=== PATIENT | male | born 1975 | race Caucasian/White ===

== ENCOUNTER 2020-02-21 07:26 | Emergency (ER) | payer SELFPAY ==
[~2020-02-21] VITALS: Ht 172.7 cm; Wt 86.8 kg
[2020-02-21] MEDS ORDERED: SODIUM CHLORIDE FLUSH 10ML SYR IVF ONE (08:00)
[2020-02-21] MEDS ORDERED: MECLIZINE CHEWABLE 25 MG TAB PO ONE (08:00)
[2020-02-21] MEDS ORDERED: SODIUM CHLORIDE 0.9% 1,000ML IVBOLUS ONE (08:00)
[2020-02-21] MEDS ORDERED: MECLIZINE CHEWABLE 25 MG TAB ONE (08:03)
--- NOTE | 2020-02-21 08:16 | NUR ---
PT AMBULATORY TO ROOM 2 W/ C/O DIZZINESS STARTED 3 DAYS AGO AFTER PT HAD METH USE W/ SNORTING. PT RESTING ON RJOHNNY. NADN. MONITORS APPLIED. PIV INITIATED.
[2020-02-21 08:28] LABS: BASOPHILS % (AUTO) 1 % (0-1); EOSINOPHILS % (AUTO) 1 % (1-7); LYMPHOCYTES % (AUTO) 32 % (22-44); MEAN CORPUSCULAR HEMOGLOBIN 31.4 pg (27.5-34.5); MEAN CORPUSCULAR HGB CONC 33.8 g/dL (33.2-36.2); MEAN PLATELET VOLUME 8.5 fL (7.4-10.4); MONOCYTES % (AUTO) 12 % (2-9); NEUTROPHILS % (AUTO) 55 % (42-75); PLATELET COUNT 201 x10^3/uL (130-400); RED BLOOD COUNT 4.72 x10^6/uL (4.38-5.82); RED CELL DISTRIBUTION WIDTH 14.8 % (9.4-14.8)
[2020-02-21 08:31] LABS: MD NO
[2020-02-21 08:39] LABS: ALANINE AMINOTRANSFERASE 52 U/L (12-78); ALBUMIN 3.7 g/dL (3.4-5.0); ANION GAP 11 mmol/L (5-15); CALCIUM 8.5 mg/dL (8.5-10.1); CHLORIDE 109 mmol/L (98-107); CREATININE 0.85 mg/dL (0.7-1.3)
[2020-02-21 08:41] LABS: ALKALINE PHOSPHATASE 101 U/L (45-117); BILIRUBIN,TOTAL 0.4 mg/dL (0.2-1.0); TOTAL PROTEIN 7.5 g/dL (6.4-8.2)
[2020-02-21] MEDS ORDERED: POTASSIUM CHLORIDE 20 MEQ TAB.ER.PRT ONE (08:57)
[2020-02-21] MEDS ORDERED: POTASSIUM CHLORIDE 20 MEQ PACKET ONE (09:00)
[2020-02-21] MEDS ORDERED: POTASSIUM CHLORIDE 20 MEQ PACKET PO ONE (09:00)
--- NOTE | 2020-02-21 09:03 | NUR ---
PT CONTINUES TO BE "EXTREMELY DIZZY". ERP DR. ALMEIDA NOTIFIED.
--- NOTE | 2020-02-21 09:27 | NUR ---
PT CHART REVIEWED AND PLACED FOR RECHECK.
[2020-02-21 10:09] VITALS: BP 157/90
== END 2020-02-21 10:13 | disposition home or self-care (01) ==
LOC: ED 09:19
DX: R42 Dizziness and giddiness (principal); E87.6 Hypokalemia; R51.9 Headache, unspecified; F17.200 Nicotine dependence, unspecified, uncomplicated; R94.31 Abnormal electrocardiogram [ECG] [EKG]
CPT/HCPCS: 36415; 70450; 80053; 85025; 93005; 96360; 99285; J7030

== ENCOUNTER 2020-02-21 18:59 | Emergency (ER) | payer SELFPAY ==
[~2020-02-21] VITALS: Ht 172.7 cm; Wt 86.8 kg
--- NOTE | 2020-02-21 19:36 | NUR ---
PATIENT WALKED BACK FROM TRIAGE WITH CHIEF C/O DIZZINESS X1 DAY. PATIENT ALSO COMPLAINS OF TINGLING ON THE LEFT SIDE OF HIS FACE AND BOTH HANDS. PATIENT WAS SEEN IN ER THIS MORNING, HE HAD BLOOD WORK AND CAT SCAN DONE. PATIENT REPORTS HE'S BEEN DRINKING "10 NETTA AND COKES EVERY DAY FOR THE LAST WEEK." PATIENT REPORTS LAST DRINK WAS THIS MORNING BEFORE HE CAME INTO ER. NO SIGNS OF ACUTE DISTRESS, CONNECTED TO VITALS MACHINE, CALL LIGHT WITHIN REACH.
--- NOTE | 2020-02-21 19:39 | NUR ---
ER PROVIDER AT BEDSIDE FOR EVALUATION.
--- NOTE | 2020-02-21 19:43 | NUR ---
PATIENT REPORTS USING METH "2-3 DAYS AGO." DENIES CHEST PAIN, N/V/D, NO SOB.
[2020-02-21] MEDS ORDERED: LORazepam 1MG TABLET ONE (19:59)
[2020-02-21] MEDS ORDERED: LORazepam 1MG TABLET PO ONE (20:00)
--- NOTE | 2020-02-21 20:05 | NUR ---
PATIENT AMBULATED TO BATHROOM WITH STEADY GAIT.
[2020-02-21 20:44] VITALS: BP 148/93
--- NOTE | 2020-02-21 21:05 | NUR ---
Patient and spouse given discharge instructions and prescription and they have confirmed that they understand the instructions. Patient ambulatory with steady gait from ED.
== END 2020-02-21 21:06 | disposition home or self-care (01) ==
LOC: ED 20:17
DX: R42 Dizziness and giddiness (principal); F41.1 Generalized anxiety disorder; F15.10 Other stimulant abuse, uncomplicated; F41.9 Anxiety disorder, unspecified; R00.0 Tachycardia, unspecified
CPT/HCPCS: 93005; 99283

== ENCOUNTER 2020-05-25 05:35 | Emergency (ER) | payer MEDICAID ==
[~2020-05-25] VITALS: Ht 175.3 cm; Wt 198.0 kg
[2020-05-25] MEDS ORDERED: KETOROLAC 30 MG/1 ML ONE (06:15)
[2020-05-25] MEDS ORDERED: LORazepam 2 MG/ML, 1ML ONE (06:15)
[2020-05-25] MEDS ORDERED: ONDANSETRON 2MG/ML, 2ML ONE (06:15)
[2020-05-25 06:29] LABS: BASOPHILS % (AUTO) 1 % (0-1); EOSINOPHILS % (AUTO) 1 % (1-7); LYMPHOCYTES % (AUTO) 23 % (22-44); MEAN CORPUSCULAR HEMOGLOBIN 31.6 pg (27.5-34.5); MEAN CORPUSCULAR HGB CONC 33.9 g/dL (33.2-36.2); MEAN PLATELET VOLUME 8.8 fL (7.4-10.4); MONOCYTES % (AUTO) 11 % (2-9); NEUTROPHILS % (AUTO) 64 % (42-75); RED BLOOD COUNT 4.26 x10^6/uL (4.38-5.82); RED CELL DISTRIBUTION WIDTH 15.8 % (9.4-14.8)
[2020-05-25] MEDS ORDERED: ONDANSETRON 2MG/ML, 2ML IVPush ONE (06:30)
[2020-05-25] MEDS ORDERED: LORazepam 2 MG/ML, 1ML IVPush ONE (06:30)
[2020-05-25] MEDS ORDERED: SODIUM CHLORIDE 0.9% 1,000ML IVBOLUS ONE (06:30)
[2020-05-25] MEDS ORDERED: KETOROLAC 30 MG/1 ML IVPush ONE (06:30)
[2020-05-25 06:41] LABS: ALANINE AMINOTRANSFERASE 131 U/L (12-78); ALBUMIN 3.8 g/dL (3.4-5.0); ANION GAP 15 mmol/L (5-15); CALCIUM 8.5 mg/dL (8.5-10.1); CHLORIDE 101 mmol/L (98-107); CREATININE 0.66 mg/dL (0.7-1.3)
[2020-05-25 06:43] LABS: ALKALINE PHOSPHATASE 84 U/L (45-117); BILIRUBIN,TOTAL 1.2 mg/dL (0.2-1.0); TOTAL PROTEIN 6.9 g/dL (6.4-8.2)
[2020-05-25 07:02] LABS: PLATELET COUNT 105 x10^3/uL (130-400)
[2020-05-25 07:03] LABS: MD SCAN
[2020-05-25 07:45] VITALS: BP 143/86
--- NOTE | 2020-05-25 07:59 | NUR ---
PT REC'VD DISCHARGE INSTRUCTIONS AND EDUCATION. PT HAD NO QUESTIONS. PT AMBULATED TO DC AREA, STEADY GAIT.
== END 2020-05-25 08:00 | disposition home or self-care (01) ==
LOC: ED 07:45
DX: H81.10 Benign paroxysmal vertigo, unspecified ear (principal); K70.10 Alcoholic hepatitis without ascites; F15.129 Other stimulant abuse with intoxication, unspecified; F10.129 Alcohol abuse with intoxication, unspecified; R07.9 Chest pain, unspecified; R94.31 Abnormal electrocardiogram [ECG] [EKG]; F17.210 Nicotine dependence, cigarettes, uncomplicated; Y90.0 Blood alcohol level of less than 20 mg/100 ml
CPT/HCPCS: 36415; 71045; 80053; 83690; 85025; 93005; 96361; 96374; 96375; 99285; J1885; J2060; J2405; J7030

== ENCOUNTER 2020-05-25 12:08 | Emergency (ER) | payer MEDICAID ==
[~2020-05-25] VITALS: Ht 175.3 cm; Wt 89.6 kg
--- NOTE | 2020-05-25 13:00 | NUR ---
pt in bed with no signs or symptoms of acute distress noted respirations even and unlabored, at bedside. pt states ice pack to face helped.
[2020-05-25] MEDS ORDERED: DIPHENHYDRAMINE 50 MG/ML, 1ML ONE (13:12)
[2020-05-25] MEDS ORDERED: DEXAMETHASONE 4 MG/ML, 5ML ONE (13:12)
[2020-05-25] MEDS ORDERED: EPINEPHRINE 1 MG/ML, 1ML ONE (13:12)
[2020-05-25] MEDS ORDERED: FAMOTIDINE 20 MG/2 ML ONE (13:13)
[2020-05-25] MEDS ORDERED: EPINEPHRINE 1 MG/ML, 1ML IM ONE (13:30)
[2020-05-25] MEDS ORDERED: DIPHENHYDRAMINE 50 MG/ML, 1ML IVPush ONE (13:30)
[2020-05-25] MEDS ORDERED: DEXAMETHASONE 4 MG/ML, 1ML IVPush ONE (13:30)
[2020-05-25] MEDS ORDERED: FAMOTIDINE 20 MG/2 ML IVPush ONE (13:30)
--- NOTE | 2020-05-25 14:33 | NUR ---
md at bedside to assess
[2020-05-25 15:32] VITALS: BP 137/85
== END 2020-05-25 15:42 | disposition home or self-care (01) ==
LOC: ED 14:26
DX: T78.3XXA Angioneurotic edema, initial encounter (principal)
CPT/HCPCS: 96372; 96374; 96375; 99285; J0171; J1100; J1200

== ENCOUNTER 2020-07-15 17:32 | Emergency (ER) | payer MEDICAID ==
[~2020-07-15] VITALS: Ht 175.3 cm; Wt 86.8 kg
--- NOTE | 2020-07-15 17:35 | NUR ---
[id number]
--- NOTE | 2020-07-15 17:57 | NUR ---
PT STATES "I'M HAVING CHEST PAIN AND MY THROAT FEELS LIKE SUPER DRY". SX STARTED 2 HOURS AGO. PER PT HE USED METH 3 DAYS AGO. AND ALSO DRANK 2 SHOTS AT 1000, NORMALLY DRINKS 8 SHOTS PER DAY. PT STATES CHEST PAIN IS EPIGASTRIC AND INTERMITTENT AT 7/10 WHEN HE HAS IT. PT RESTING IN [facility], MONITORING IN PLACE, MOM AT BEDSIDE, PT'S HR CURRENTLY 115, NADN AT THIS TIME, WCTM.
--- NOTE | 2020-07-15 18:00 | NUR ---
EKG DONE IN TRIAGE.
[2020-07-15] MEDS ORDERED: ACETAMINOPHEN 500 MG TABLET PO ONE (18:30)
[2020-07-15] MEDS ORDERED: SODIUM CHLORIDE FLUSH 10ML SYR IVF ONE (18:30)
[2020-07-15] MEDS ORDERED: SODIUM CHLORIDE 0.9% 1,000ML IVBOLUS ONE (18:30)
[2020-07-15 18:32] LABS: BASOPHILS % (AUTO) 1 % (0-1); EOSINOPHILS % (AUTO) 0 % (1-7); LYMPHOCYTES % (AUTO) 12 % (22-44); MEAN CORPUSCULAR HEMOGLOBIN 31.9 pg (27.5-34.5); MEAN CORPUSCULAR HGB CONC 34.3 g/dL (33.2-36.2); MEAN PLATELET VOLUME 8.2 fL (7.4-10.4); MONOCYTES % (AUTO) 6 % (2-9); NEUTROPHILS % (AUTO) 81 % (42-75); PLATELET COUNT 279 x10^3/uL (130-400); RED BLOOD COUNT 4.76 x10^6/uL (4.38-5.82); RED CELL DISTRIBUTION WIDTH 16.2 % (9.4-14.8)
[2020-07-15 18:40] LABS: MD NO
[2020-07-15 18:44] LABS: ALANINE AMINOTRANSFERASE 98 U/L (12-78); ALBUMIN 4.1 g/dL (3.4-5.0); ANION GAP 10 mmol/L (5-15); CALCIUM 9.2 mg/dL (8.5-10.1); CHLORIDE 98 mmol/L (98-107); CREATININE 0.83 mg/dL (0.7-1.3)
[2020-07-15 18:54] LABS: ALKALINE PHOSPHATASE 88 U/L (45-117); BILIRUBIN,TOTAL 0.7 mg/dL (0.2-1.0); TROPONIN I < 0.015 ng/mL (0.000-0.045)
[2020-07-15] MEDS ORDERED: ACETAMINOPHEN 500 MG TABLET ONE (18:59)
--- NOTE | 2020-07-15 19:27 | NUR ---
RADIOLOGY CALLED ABOUT CXR. PER ESCROW ASSISTANT "IMAGES DID NOT CROSS OVER, CXR SHOULD BE READ BY 1930".
[2020-07-15] MEDS ORDERED: LORazepam 2 MG/ML, 1ML IVPush ONE (19:30)
[2020-07-15] MEDS ORDERED: LORazepam 2 MG/ML, 1ML ONE (19:40)
[2020-07-15] MEDS ORDERED: POTASSIUM CHLORIDE 20 MEQ TAB.ER.PRT ONE ×2 (19:54→21:00)
[2020-07-15] MEDS ORDERED: MAGNESIUM SULFATE/D5W 100 ML ONE (19:58)
[2020-07-15] MEDS ORDERED: POTASSIUM CHLORIDE 20 MEQ TAB.ER.PRT PO ONE ×2 (20:00→21:00)
[2020-07-15] MEDS ORDERED: MAGNESIUM SULFATE/D5W 100 ML IVPB ONE (20:00)
[2020-07-15 21:07] VITALS: BP 140/89
== END 2020-07-15 21:44 | disposition home or self-care (01) ==
LOC: ED 21:02
DX: B37.0 Candidal stomatitis (principal); R06.00 Dyspnea, unspecified; R06.02 Shortness of breath; F15.10 Other stimulant abuse, uncomplicated; R07.89 Other chest pain; R11.2 Nausea with vomiting, unspecified; F41.9 Anxiety disorder, unspecified; E87.6 Hypokalemia; E83.42 Hypomagnesemia; F17.210 Nicotine dependence, cigarettes, uncomplicated; Z72.9 Problem related to lifestyle, unspecified
CPT/HCPCS: 36415; 71045; 80053; 83690; 84443; 84484; 85025; 93005; 96361; 96365; 96375; 99285; 99406; J2060; J7030

== ENCOUNTER 2020-07-16 08:07 | Emergency (ER) | payer MEDICAID ==
[~2020-07-16] VITALS: Ht 175.3 cm; Wt 85.8 kg
[2020-07-16 08:13] VITALS: BP 164/102
--- NOTE | 2020-07-16 08:24 | NUR ---
PT AMBULATED TO THE ROOM W/ A STEADY GAIT.
[2020-07-16 08:43] LABS: BASOPHILS % (AUTO) 0 % (0-1); EOSINOPHILS % (AUTO) 0 % (1-7); LYMPHOCYTES % (AUTO) 5 % (22-44); MEAN CORPUSCULAR HEMOGLOBIN 31.7 pg (27.5-34.5); MEAN CORPUSCULAR HGB CONC 33.8 g/dL (33.2-36.2); MONOCYTES % (AUTO) 6 % (2-9); NEUTROPHILS % (AUTO) 88 % (42-75); PLATELET COUNT 222 x10^3/uL (130-400); RED BLOOD COUNT 4.61 x10^6/uL (4.38-5.82); RED CELL DISTRIBUTION WIDTH 16.4 % (9.4-14.8)
[2020-07-16 08:46] LABS: MD NO
[2020-07-16 08:54] LABS: CALCIUM 8.8 mg/dL (8.5-10.1); CHLORIDE 99 mmol/L (98-107)
[2020-07-16 08:56] LABS: ANION GAP 8 mmol/L (5-15); CREATININE 0.68 mg/dL (0.7-1.3)
--- NOTE | 2020-07-16 09:22 | NUR ---
pt medicated for anxiety, no other requests at this time
[2020-07-16] MEDS ORDERED: ONDANSETRON ODT 4 MG PO ONE (09:30)
[2020-07-16] MEDS ORDERED: ONDANSETRON ODT 4 MG ONE (09:33)
--- NOTE | 2020-07-16 10:34 | NUR ---
Pt made aware that his mother tried to contact him but his phone was , pt made aware that he can use phone at discharge desk
== END 2020-07-16 10:36 | disposition home or self-care (01) ==
LOC: ED 08:48
DX: R00.2 Palpitations (principal); F10.20 Alcohol dependence, uncomplicated; Y90.0 Blood alcohol level of less than 20 mg/100 ml
CPT/HCPCS: 36415; 80048; 80320; 85025; 93005; 99284; Q0162; Q0177; G0480

== ENCOUNTER 2020-11-19 05:28 | Emergency (ER) | payer MEDICAID ==
[~2020-11-19] VITALS: Ht 175.3 cm; Wt 94.9 kg
--- NOTE | 2020-11-19 05:45 | NUR ---
Patient reports feeling anxious and experiencing palpitations, he stated "I could see my heart pounding out of my chest". Patient reports binge drinking weekly on tequila, fireball, and leigh ann. Patient is talkative, restless. at bedside.
[2020-11-19] MEDS ORDERED: hydrOXyzine 50MG TABLET ONE (05:56)
[2020-11-19] MEDS ORDERED: hydrOXyzine 50MG TABLET PO ONE (06:00)
--- NOTE | 2020-11-19 06:05 | NUR ---
Patient medicated per MAR, and UA collected.
--- NOTE | 2020-11-19 06:26 | NUR ---
PATIENT COMPLAINING OF DIZZINESS. HE STATES "IT FEELS LIKE WHEN I'M DRUNK AND GET DIZZY" PATIENT CONTINUES TO COMPLAIN OF PAPITATIONS. VSS. NOTIFIED. WILL CONTINUE TO MONITOR.
[2020-11-19] MEDS ORDERED: PROMETHAZINE 25MG TABLET PO ONE (06:30)
[2020-11-19 06:41] LABS: ANION GAP 11 mmol/L (5-15); CALCIUM 8.4 mg/dL (8.5-10.1); CHLORIDE 102 mmol/L (98-107); CREATININE 0.67 mg/dL (0.7-1.3)
[2020-11-19 06:47] LABS: AMPHETAMINE SCREEN, URINE Negative (Negative); BARBITURATE SCREEN, URINE Negative (Negative); BENZODIAZEPINE SCREEN, URINE Negative (Negative); CANNABINOID SCREEN, URINE Negative (Negative); COCAINE SCREEN, URINE Negative (Negative)
[2020-11-19 06:49] LABS: METHADONE SCREEN, URINE Negative (Negative); OPIATE SCREEN, URINE Negative (Negative)
--- NOTE | 2020-11-19 06:51 | NUR ---
took report from Mercedes ingram, assume care at tis time.
[2020-11-19 07:22] VITALS: BP 154/74
== END 2020-11-19 07:24 | disposition home or self-care (01) ==
LOC: ED 06:32
DX: R00.2 Palpitations (principal); R42 Dizziness and giddiness; F41.9 Anxiety disorder, unspecified; F10.10 Alcohol abuse, uncomplicated; R00.0 Tachycardia, unspecified; Y90.0 Blood alcohol level of less than 20 mg/100 ml
CPT/HCPCS: 36415; 80048; 80307; 80320; 93005; 99284; G0480